=== PATIENT | female | born 2005 | race Two or more races ===

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

== ENCOUNTER 2024-02-18 10:17 | Day surgery (SDC) | payer OTHER, SELFPAY ==
[2024-02-18] VITALS (11 sets, daily range): BP systolic 147–168; BP diastolic 77–101; PULSE 57–104; RESP 15–20; TEMP 35.2–36.6; O2SAT 94–100; BMI 41.2
--- NOTE | ~2024-02-18 | US_ITS ---
EXAMINATION: US ABDOMEN LIMITED CLINICAL INFORMATION: Right upper quadrant pain, evaluate gallbladder. COMPARISON: Abdominal ultrasound 11/01/2022 and 09/03/2022 TECHNIQUE: Real-time imaging of the gallbladder. FINDINGS: GALLBLADDER: The gallbladder is physiologically distended. Multiple mobile gallstones are present. No evidence of gallbladder wall thickening or pericholecystic fluid. Per superintendent mechanical report patient is tender in the region of the gallbladder. COMMON BILE DUCT: Normal in caliber measuring 0.5 cm in diameter. US/US abdomen limited IMPRESSION: Cholelithiasis. Per superintendent mechanical report patient is tender in the region of the gallbladder, which can be seen in the setting of potential cholecystitis however there is no abnormal gallbladder distention, gallbladder wall thickening or pericholecystic fluid by imaging to confirm acute cholecystitis. Recommend correlation with clinical exam and clinical Candelario's, and HIDA scan could be obtained for further evaluation if warranted. Electronically signed by: Maya Odom MD 02/18/2024 02:51 PM EDT
[2024-02-18 10:53] LABS: MANUAL DIFF FLAG NO
[2024-02-18 10:54] LABS: Basophils Percent Auto 0.3 % (0-2); Eosinophils Percent Auto 0.1 % (0-4); Hematocrit 43.6 % (37.0-47.0); Hemoglobin 14.3 g/dl (12.0-16.0); Imm Gran Abs Auto 0.13 X10*3/uL (0.00-0.03); Imm Gran Pct Auto 0.9 % (0.0-0.4); Lymphocytes Absolute Auto 2.1 X10*3/uL (1.2-4.9); Lymphocytes Percent Auto 14.3 % (20-40); Mean Corpuscular HGB Conc 32.8 g/dl (31.0-35.0); Mean Corpuscular Hemoglobin 27.3 pg (27.0-33.0); Mean Corpuscular Volume 83.4 fL (80.0-98.0); Mean Platelet Volume 12.2 fL (9.4-12.3); Monocytes Absolute Auto 0.4 X10*3/uL (0.1-1.2); Neutrophils Absolute Auto 11.9 x10*3/uL (2.0-8.3); Neutrophils Percent Auto 81.4 % (45-73); Platelet Count 296 X10*3/uL (160-400); Red Blood Count 5.23 X10*6/uL (4.20-5.50); Red Cell Distribution Width 13.2 % (11.0-16.0); White Blood Count 14.7 X10*3/uL (4.8-10.8)
[2024-02-18 10:56] LABS: Appearance Urine Clear; Color Urine Yellow; Glucose Urine UA Negative (Negative); Leukocyte Esterase Urine Negative (Negative); Nitrite Urine Negative (Negative); PH 5.5 (5.0-9.0); UMIC TRIGGER UACC YES; Urine Blood Moderate (2+) (Negative); Urine Ketones Negative (Negative); Urine Protein 100 (2+) mg/dL (Neg-Trace)
[2024-02-18 10:57] LABS: UPreg QC Valid YES; Urine Pregnancy NEGATIVE (NEGATIVE)
[2024-02-18 11:03] LABS: Bacteria Urine Trace (None Seen); Hyaline Casts Urine 0-2 /LPF (0-2); UACC Culture Trigger YES
[2024-02-18 11:15] LABS: Alanine Aminotransferase 27 U/L (0-31); Albumin Level 4.7 g/dL (3.5-5.0); Alkaline Phosphatase 93 U/L (39-117); Anion Gap 12 (12-20); Aspartate Amino Transferase 20 U/L (5-31); Bilirubin Direct 0.1 mg/dL (0.0-0.5); Bilirubin Total 0.3 mg/dL (0.0-1.0); Blood Urea Nitrogen 9 mg/dL (9-16); Carbon Dioxide 21 mmol/L (22-29); Chloride 111 mmol/L (96-108); Creatinine Clr Calc Pharmacy 143.9; Estimated Glomerular Filt Rate > 60; Glucose Random 127 mg/dL (60-115); Lipase 18 U/L (8-78); Sodium 140 mmol/L (135-145); Total Protein 8.3 g/dL (6.5-8.0)
--- NOTE | 2024-02-18 11:21 | ED_ITS ---
HPI - Abdominal Pain General Chief Complaint: Abdominal Pain Stated Complaint: abd pain Time Seen by Provider: 02/18/24 12:03 Source: patient Mode of arrival: ambulatory Limitations: no limitations History of Present Illness ED Provider: LUÍS TAFOYA narrative: 18 yo female with obesity and frequent abdominal pain with fatty foods and known gallstones ate priscilla karen for dinner last night woke up at midnight with severe abdominal pain and RUQ pain with n/v. The patient denies fevers, has not seen a surgeon yet. Was not told to eat a lowfat diet. Has not taken any medications for it yet. MD elicited complaint: abdominal pain Pertinent past history: other (gallstones) Onset (ago): day(s) (midnight) Pain Consistency: constant Location: RUQ Severity: severe Quality: stabbing Radiation: epigastric and chest Migration to: no migration Exacerbating factors: eating Relieving factors: nothing Context: history of similar episodes Associated symptoms: nausea and vomiting Related Data Previous Rx's ?Medication ?Instructions ?Recorded medroxyprogesterone 150 mg/mL 150 mg IM Q12W #1 mL 08/26/22 intramuscular suspension (Depo-Provera) vit no.95-ferrous 1 tab PO DAILY #30 tabs 09/03/22 fumarate 28 mg-folic acid 800 mcg tablet () Allergies Allergy/AdvReac Type Severity Reaction Status Date / Time Penicillins Allergy Mild inflamation Verified 02/18/24 10:27 aspirin [ASA] Allergy Rash Verified 02/18/24 10:27 Review of Systems Review of Systems Constitutional : No Weight loss, No Fever, No Chills ENT/Mouth : No sore throat, No Rhinorrhea Eyes: No Swelling, No Redness Cardiovascular : No Chest Pain, No SOB, NoEdema Respiratory : No Cough, No Sputum, No Wheezing Gastrointestinal : Positive Nausea, Positive Vomiting, no Diarrhea, positive abdominal Pain, No Hematochezia, No Melena Genitourinary : No Dysuria, No Urinary Frequency, No Hematuria, No Urgency Musculoskeletal : No joint pain, No Myalgias, No Joint Swelling Skin : No Skin Lesions, No rash Neuro : No Weakness, No Numbness, No Dizziness, No Headache Psych : No Anxiety/Panic, No Depression All other systems reviewed and are negative. [facility] Past Medical History Attestation statement: The following information was validated with the patient. Source: old records reviewed Medical History (Updated 02/18/24 @ 15:06 by Fallon Gold DO) Obesity, morbid, BMI 40.0-49.9 Social History Social History (Updated 02/18/24 @ 12:21 by Fallon Gold DO) Patient Tobacco Use Status: Never used Tobacco Smoked in Last 30 Days: No Use of substances other than those prescribed or required for medical reasons: No Advance Directives: No Advance Directives Information Provided: No Do you have a plan to hurt others: No Plan Patient : No Physical Exam ED Vital Signs: Vital Signs - 24 hr 02/18/24 10:23 02/18/24 12:07 Temperature 95.4 F L 98 F Pulse Rate 73 57 Respiratory Rate 20 18 Blood Pressure 164/101 H 147/93 H Pulse Oximetry 98 98 Oxygen Delivery Method Room Air Room Air BMI result Body Mass Index 41.2 Appearance: Alert. Oriented X3. No acute distress. Eyes: Pupils equal, round and reactive to light. ENT: Pharynx normal. Neck: Normal inspection. Neck supple. CVS: Normal heart rate and rhythm. Pulses normal. Respiratory: No respiratory distress. Breath sounds normal. Abdomen: Soft and moderate RUQ ttp with + santos's sign Skin: Skin warm and dry. Normal skin color. Normal skin turgor. Extremities: No lower extremity edema. No calf ttp Neuro: Oriented X 3. No motor deficit. No sensory deficit. Course Course Course Narrative: This is a rapid medical exam. deferred additional HPI, ROS, PE to primary provider. 18 yo female with history of obesity, no abdominal surgical history but does have a history of gallstones while in [place] here with RUQ pain, vomiting after eating burger karen last evening. Will need labs, UA, abdominal US Will give KENY Costa APRN Medical Decision Making Medical Decision Making MDM Narrative: 18 yo female with PMH of obesity recurrent attacks of RUQ pain after eating fatty foods here again with n/v and RUQ pain after eating BK last night at this time labs, US to evaluate GB, IVF and IV morphine for pain. Suspect biliary colic vs acute surgical pathology of gallbladder Differential Diagnosis Differential Diagnoses: The differential diagnosis associated with the presentation includes biliary colic vs acute surgical pathology of gallbladder Admission/Observation Consideration of admission/observation: Escalation of care including admission/observation considered pain and nausea not improved likely admit will consult surgery Consult Healthcare Provider Management of the patient was discussed with: Locomotive Mechanic Apprentice (Tony will admit) to go to OR preop ceftriaxone and flagyl ordered Lab Data [facility] Lab Attestation statement: I reviewed the patient's lab results. 02/18/24 10:40 02/18/24 10:40 Labs: Lab Results 02/18/24 02/18/24 Range/Units 10:40 10:47 WBC 14.7 H (4.8-10.8) X10*3/uL RBC 5.23 D (4.20-5.50) X10*6/uL Hgb 14.3 D (12.0-16.0) g/dl Hct 43.6 D (37.0-47.0) % MCV 83.4 (80.0-98.0) fL MCH 27.3 (27.0-33.0) pg MCHC 32.8 (31.0-35.0) g/dl RDW 13.2 (11.0-16.0) % Plt Count 296 D (160-400) X10*3/uL MPV 12.2 (9.4-12.3) fL Immature Gran % (Auto) 0.9 H (0.0-0.4) % Neut % (Auto) 81.4 H (45-73) % Lymph % (Auto) 14.3 L (20-40) % Branch % (Auto) 3.0 (2-11) % Eos % (Auto) 0.1 (0-4) % Baso % (Auto) 0.3 (0-2) % Lymph # (Auto) 2.1 (1.2-4.9) X10*3/uL Branch # (Auto) 0.4 (0.1-1.2) X10*3/uL Eos # (Auto) 0.0 (0.0-0.4) X10*3/uL Baso # (Auto) 0.0 (0.0-0.2) X10*3/uL Abs Immat Gran (auto) 0.13 H (0.00-0.03) X10*3/uL Absolute Neuts (auto) 11.9 H (2.0-8.3) x10*3/uL Absolute Nucleated RBC 0.000 (0.0-0.012) X10*3/uL Nucleated RBC % (auto) 0.0 (0.0-0.2) /100WBC Sodium 140 (135-145) mmol/L Potassium 4.0 (3.3-5.1) mmol/L Chloride 111 H (96-108) mmol/L Carbon Dioxide 21 L (22-29) mmol/L Anion Gap 12 (12-20) BUN 9 (9-16) mg/dL Creatinine 0.84 (0.5-1.4) mg/dL Estim Creat Clear Calc 143.9 Estimated GFR > 60 Random Glucose 127 H (60-115) mg/dL Calcium 10.0 D (8.4-10.2) mg/dL Total Bilirubin 0.3 (0.0-1.0) mg/dL Direct Bilirubin 0.1 (0.0-0.5) mg/dL AST 20 (5-31) U/L ALT 27 (0-31) U/L Alkaline Phosphatase 93 (39-117) U/L Total Protein 8.3 H (6.5-8.0) g/dL Albumin 4.7 (3.5-5.0) g/dL Lipase 18 (8-78) U/L Urine Color Yellow Urine Appearance Clear Urine pH 5.5 (5.0-9.0) Ur Specific [place] 1.020 (1.005-1.025) Urine Protein 100 (2+) H (Neg-Trace) mg/dL Urine Glucose (UA) Negative (Negative) mg/dL Urine Ketones Negative (Negative) mg/dL Urine Blood Moderate (2+) H (Negative) Urine Nitrite Negative (Negative) Ur Leukocyte Esterase Negative (Negative) Urine RBC 3-5 H (0-2) /HPF Urine WBC 6-10 H (0-5) /HPF Ur Squamous Epith Cells 11-20 (0-2) /HPF Urine Bacteria Trace (None Seen) Hyaline Casts 0-2 (0-2) /LPF Urine Test NEGATIVE (NEGATIVE) Independent Interpretation I performed an independent interpretation of an: Ultrasound (biliary colic + santos's sign) Radiology Impression Discussion of test interpretation with radiology: I have reviewed the radiologist's reading. External Record Review External record reviewed: Inpatient record Prescription Management I considered prescription management with: Pain Medication Medications Administered Discontinued Medications Generic Name Dose Route Start Last Admin Trade Name Bianka PRN Reason Stop Dose Admin Lactated Ringer's 1,000 mls @ 999 mls/hr 02/18/24 12:03 02/18/24 12:52 Lr IV 02/18/24 13:03 999 mls/hr .Q1H1M ONE Administration Morphine Sulfate 4 mg 02/18/24 12:03 02/18/24 12:52 Morphine Sulfate 4 Mg/Ml Cartridge IVPUSH 02/18/24 12:04 4 mg ONCE ONE Administration Protocol Ondansetron HCl 4 mg 02/18/24 11:23 02/18/24 11:24 Ondansetron Odt 4 Mg Tab.Rapdis TRANSLINGU 02/18/24 11:24 4 mg ONCE ONE Administration Ondansetron HCl 4 mg 02/18/24 12:03 02/18/24 12:52 Ondansetron Hcl 4 Mg/2 Ml Vial IVPUSH 02/18/24 12:04 4 mg ONCE ONE Administration Critical Care Time Critical Care Time Critical Care Time: Yes Total Critical Care Time: 45 Attestation: repeat IV morphine/dilaudid, IVF, surgical consult I attest to this time spent taking care of the patient Discharge Plan Discharge Clinical Impression: Abdominal pain, Biliary colic Patient Disposition: Admitted as Observation Print Language: Prydeinig
[2024-02-18] MEDS: Ondansetron ODT 4 MG TAB.RAPDIS TRANSLINGU (11:24)
[2024-02-18] MEDS: ondansetron HCL 4 MG/2 ML VIAL IVPUSH ×2 (12:52→15:28)
[2024-02-18] MEDS: Lactated Ringers 1,000 ML 999 ML IV (12:52)
[2024-02-18] MEDS: Morphine Sulfate 4 MG/ML CARTRIDGE IVPUSH (12:52)
--- NOTE | 2024-02-18 15:24 | PM.HPGS ---
History of Present Illness History of Present Illness Date of Service: 02/18/24 Chief complaint: Abdominal Pain Narrative: Myrtle Paula is a 18 year old female with a history of biliary colic who presents here with a proximally 2 day history of a recurrent episode. Because of progressive symptoms, she presented emergency department. Her pain has been quite severe and has not been relieved with IV analgesia. Her symptoms of right upper quadrant pain radiating around to her back. As noted above, she has had multiple bouts of this in [place] . She otherwise is relatively healthy. She is tolerating her diet usually, she has regular bowel habits. She has fatty food intolerance. She has never been jaundiced before. Chart was reviewed and patient evaluated. White count 14.7. Ultrasound demonstrates cholelithiasis and tenderness over gallbladder. [facility] Past Medical History Medical History (Updated 02/18/24 @ 15:26 by Evangelist Jimenez MD) Obesity, morbid, BMI 40.0-49.9 Social History Social History (Updated 02/18/24 @ 12:21 by Fallon Gold DO) Patient Tobacco Use Status: Never used Tobacco Smoked in Last 30 Days: No Use of substances other than those prescribed or required for medical reasons: No Advance Directives: No Advance Directives Information Provided: No Do you have a plan to hurt others: No Plan Patient : No Meds Allergies Allergy/AdvReac Type Severity Reaction Status Date / Time Penicillins Allergy Mild inflamation Verified 02/18/24 10:27 aspirin [ASA] Allergy Rash Verified 02/18/24 10:27 Active Medications: Current Medications Lactated Ringer's (Lr) 1,000 mls @ 100 mls/hr IVCONT .Q10H WILMER Ceftriaxone Sodium 1 gm/ (Sodium Chloride) 50 mls @ 100 mls/hr IV ONCE ONE Stop: 02/18/24 15:41 Metronidazole (Flagyl) 500 mg in 100 mls @ 100 mls/hr IV ONCE ONE Stop: 02/18/24 16:11 Physical Exam Vital Signs: Vital Signs: Last Vital Signs Temp 98 F 02/18/24 12:07 Pulse 57 02/18/24 12:07 Resp 18 02/18/24 12:07 BP 147/93 H 02/18/24 12:07 Pulse Ox 98 02/18/24 12:07 O2 Del Method Room Air 02/18/24 12:07 BMI result Body Mass Index 41.2 Chest: Other: Chest breath sounds bilaterally, HS 1 in 2 GI: Other: Abdomen moderately corpulent, marked right upper quadrant tenderness, positive Candelario's sign. Results Results Labs: Short CBC 02/18/24 Range/Units 10:40 WBC 14.7 H (4.8-10.8) X10*3/uL Hgb 14.3 D (12.0-16.0) g/dl Hct 43.6 D (37.0-47.0) % Plt Count 296 D (160-400) X10*3/uL BMP 02/18/24 10:40 Sodium 140 Potassium 4.0 Chloride 111 H Carbon Dioxide 21 L BUN 9 Creatinine 0.84 Calcium 10.0 D Liver Function 02/18/24 Range/Units 10:40 Total Bilirubin 0.3 (0.0-1.0) mg/dL Direct Bilirubin 0.1 (0.0-0.5) mg/dL AST 20 (5-31) U/L ALT 27 (0-31) U/L Alkaline Phosphatase 93 (39-117) U/L Albumin 4.7 (3.5-5.0) g/dL Urine 02/18/24 Range/Units 10:47 Urine Color Yellow Urine Appearance Clear Urine pH 5.5 (5.0-9.0) Ur Specific [place] 1.020 (1.005-1.025) Urine Protein 100 (2+) H (Neg-Trace) mg/dL Urine Glucose (UA) Negative (Negative) mg/dL Urine Test NEGATIVE (NEGATIVE) Assessment and Plan (1) Acute cholecystitis: Status: Acute Plan Risks, benefits, alternatives laparoscopic possible open cholecystectomy reviewed with the patient and included but not limited to bleeding, infection, numbness, pain, scarring, bowel or bile duct injury or leak and the patient wishes to proceed. All questions answered. Arrangements made for this for today. Quality Stroke Does the patient have a stroke diagnosis?: No VTE Prior VTE?: No VTE Risk Level:: Surgical - low VTE Device Contraindication: N/A - Device Ordered VTE Drug Contraindication: Treatment Not Indicated Procedures Date of Service Date of Service: 02/18/24
[2024-02-18] MEDS: HYDROmorphone HCl 1 MG/ML SYRINGE IVPUSH (15:28)
--- NOTE | 2024-02-18 15:28 | HO.ANESPROP2 ---
HPI - Anesthesia Eval Consult details Narrative: Acute cholecystitis PMFSH Active Problems Active Problems: All Active Problems Acute cholecystitis (Acute) Biliary colic (Acute) Abdominal pain (Acute) control counseling (Acute) Past Medical History Medical History (Updated 02/18/24 @ 15:26 by Evangelist Jimenez MD) Obesity, morbid, BMI 40.0-49.9 Family History Family history of problems with anesthesia: No Surgical History History of Problems with Anesthesia: No Social History Social History (Updated 02/18/24 @ 12:21 by Fallon Gold DO) Patient Tobacco Use Status: Never used Tobacco Smoked in Last 30 Days: No Use of substances other than those prescribed or required for medical reasons: No Advance Directives: No Advance Directives Information Provided: No Do you have a plan to hurt others: No Plan Patient : No Meds Allergies Allergy/AdvReac Type Severity Reaction Status Date / Time Penicillins Allergy Mild inflamation Verified 02/18/24 10:27 aspirin [ASA] Allergy Rash Verified 02/18/24 10:27 Active Medications: Current Medications Lactated Ringer's (Lr) 1,000 mls @ 100 mls/hr IVCONT .Q10H WILMER Ceftriaxone Sodium 1 gm/ (Sodium Chloride) 50 mls @ 100 mls/hr IV ONCE ONE Stop: 02/18/24 15:41 Metronidazole (Flagyl) 500 mg in 100 mls @ 100 mls/hr IV ONCE ONE Stop: 02/18/24 16:11 Exam Height,Weight and Vital Signs: Height 5 ft 7 in Weight 119.2 kg Last Vital Signs Temp 98 F 02/18/24 12:07 Pulse 57 02/18/24 12:07 Resp 18 02/18/24 12:07 BP 147/93 H 02/18/24 12:07 Pulse Ox 98 02/18/24 12:07 O2 Del Method Room Air 02/18/24 12:07 Pertinent Lab Results Pertinent Lab Results: Laboratory Tests 02/18/24 02/18/24 10:40 10:47 WBC 14.7 H RBC 5.23 D Hgb 14.3 D Hct 43.6 D MCV 83.4 MCH 27.3 MCHC 32.8 RDW 13.2 Plt Count 296 D MPV 12.2 Immature Gran % (Auto) 0.9 H Neut % (Auto) 81.4 H Lymph % (Auto) 14.3 L [place] % (Auto) 3.0 Eos % (Auto) 0.1 Baso % (Auto) 0.3 Lymph # (Auto) 2.1 [place] # (Auto) 0.4 Eos # (Auto) 0.0 Baso # (Auto) 0.0 Abs Immat Gran (auto) 0.13 H Absolute Neuts (auto) 11.9 H Absolute Nucleated RBC 0.000 Nucleated RBC % (auto) 0.0 Sodium 140 Potassium 4.0 Chloride 111 H Carbon Dioxide 21 L Anion Gap 12 BUN 9 Creatinine 0.84 Estim Creat Clear Calc 143.9 Estimated GFR > 60 Random Glucose 127 H Calcium 10.0 D Total Bilirubin 0.3 Direct Bilirubin 0.1 AST 20 ALT 27 Alkaline Phosphatase 93 Total Protein 8.3 H Albumin 4.7 Lipase 18 Urine Color Yellow Urine Appearance Clear Urine pH 5.5 Ur Specific [place] 1.020 Urine Protein 100 (2+) H Urine Glucose (UA) Negative Urine Ketones Negative Urine Blood Moderate (2+) H Urine Nitrite Negative Ur Leukocyte Esterase Negative Urine RBC 3-5 H Urine WBC 6-10 H Ur Squamous Epith Cells 11-20 Urine Bacteria Trace Hyaline Casts 0-2 Urine Test NEGATIVE Airway Mallampati Class: II TM Dist: >3cm Neck ROM: Full Loose/Missing/Broken Teeth: No Heart: RRR Lungs: CTA Assessment and Plan Assessment Anesthesia Assessment: Anesthesia Plan Discussed and Chart Reviewed Final Anesthetic Review Family History of Problems with Anesthesia: No History of Problems with Anesthesia: No NPO: Yes ASA Class: II and Emergency Final Preanesthetic Review: No Changes in Pt Med Stat, Meds/Allgs Chart Reviewed, Consent Obtained/Reviewed and Anes Risks/Benef Reviewed Patient Risk: Intermediate Procedure Risk: Intermediate Anesthetic Plan Anesthetic Plan: GA Disposition: Standard PACU
[2024-02-18] MEDS: cefTRIAXone sodium 1 GM in 0.9 % Sodium Chloride 50 ML IV (15:29)
[2024-02-18] MEDS: metroNIDAZOLE/NS 500 MG/100 ML PIGGYBACK 100 MG IV (15:44)
--- NOTE | 2024-02-18 15:49 | PC.NURSE ---
Pt proceeding to OR. Pt undressed and verbal report given to TAHIRA [place]. Belongings with Pt.
--- NOTE | 2024-02-18 17:14 | P.OP_ITS ---
Operative Note Operative Note Date of Service: 02/18/24 Narrative: Preoperative diagnosis: [] Acute cholecystitis Postop diagnosis: [] Acute cholecystitis/hydrops of gallbladder Procedure [] laparoscopic cholecystectomy Surgeon: [] Tony User Support Specialist: [] Type of Anesthesia: [] General Findings the markedly edematous gallbladder with omental adhesions to it. When aspirated, consistent with hydrops of gallbladder. Markedly corpulent abdomen. Indication for surgery: [] Patient brought to the operating room, placed on operative table supine position, after an adequate level of general anesthesia was induced, the patient's abdomen was prepped and draped in usual sterile fash ion. Using a supraumbilical curvilinear incision, Jamison technique was used to insufflate abdominal cavity to 15 mm of CO2. Upper midline and right subcostal ports were placed under direct laparoscopic view, the patient placed in reverse Trendelenburg position, and tilted to the left. Findings were as noted above . Omental adhesions swept off the gallbladder and the gallbladder because of its marked turgidity was aspirated and hydrops was relieved. Gallbladder was then grasped laparoscopic graspers, and retracted superiorly and laterally. Cystic artery and cystic duct were each identified, circumferentially skeletonized, traced directly into the gallbladder and critical view obtained. Each was clipped proximally x2, distally x1, and transected gallbladder which was moderately intrahepatic was then cauterized in the gallbladder fossa using Bovie. Specimen was placed in an Endo-Catch bag, a retrieved through the umbilical port. Abdominal cavity was very copiously irrigated, secured hemostasis. All ports removed under direct laparoscopic view. Wounds were closed in the following manner; umbilical wound is fascia reapproximated using interrupted 0 Vicryl sutures. Skin wounds were closed using subcuticular 4-0 Vicryl sutures followed by Steri-Strips. Wounds were infiltrated 0.5% Marcaine at completion. Sponge, needle, and instrument counts reported correct. Patient tolerated the procedure well and emerged from anesthesia stable condition. EBL minimal
--- NOTE | 2024-02-19 14:52 | HO.POSTANES ---
Post Anesthesia Evaluation Post Anesthesia Evaluation Date of Service: 02/19/24 Anesthesia: General Endotracheal-GETA Mental Status: Awake Pain Control: Satisfactory Nausea/Vomiting: None Hydration: Adequate Anesthesia-Related Issues: No Anes. Related Issues
== END 2024-02-18 17:56 | disposition home or self-care (01) ==
LOC: HO.ED 15:15 → HO.SSS 15:18
PROVIDERS: Emergency Provider Emergency Medicine; Visit Provider Surgery
PROC: 0FT44ZZ Resection of Gallbladder, Percutaneous Endoscopic Approach (ICD-10-PCS; CPT 47562; principal; 2024-02-18 15:00)
DX: K80.00 Calculus of gallbladder with acute cholecystitis without obstruction (principal); K82.1 Hydrops of gallbladder; R10.11 Right upper quadrant pain
CPT/HCPCS: 47562; 36415; 76705; 80048; 80076; 81001; 81025; 83690; 85025; 87086; 88304; 96374; 96375; 99285; J0696; J1100; J1170; J1836; J1885; J2250; J2270; J2405; J2704; J2795; J3010; J7120

== ENCOUNTER → 2024-02-18 15:13 | Outpatient (BNV) | payer OTHER, SELFPAY | PROVIDERS: Emergency Provider Emergency Medicine; Visit Provider Surgery | DX: K81.0 Acute cholecystitis (principal) | CPT/HCPCS: 47562; 99284 ==

== ENCOUNTER → 2024-03-08 08:56 | Outpatient (BNVA) | payer SELFPAY | PROVIDERS: PCP Internal Medicine; Visit Provider Physician Assistant | DX: Z02.1 Encounter for pre-employment examination (principal) ==